=== PATIENT | male | born 1990 | race Caucasian/White ===

== ENCOUNTER 2016-10-12 06:11 | Day surgery (SDC) | payer OTHER ==
[~2016-10-12] VITALS: Ht 185.4 cm; Wt 97.2 kg
[2016-10-12] VITALS (10 sets, daily range): BP systolic 112–125; BP diastolic 58–84; PULSE 50–78; TEMP 97.8
[~2016-10-12 06:11] MED LIST: AMOXICILLIN875 MG PO
[2016-10-12] MEDS ORDERED: NAPROSYN 2250 MG/TAB PO (06:27)
[2016-10-12] MEDS ORDERED: ZANTAC 150150 MG PO (06:28)
[2016-10-12] MEDS ORDERED: NEXIUM 40MG40 MG PO (06:28)
[2016-10-12] MEDS ORDERED: ZOFRAN ODT4 MG PO (06:29)
== END 2016-10-12 10:58 | disposition home or self-care (01) ==
LOC: SDCO 06:11
DX: K80.70 Calculus of gallbladder and bile duct without cholecystitis without obstruction (principal)
CPT/HCPCS: C1769; J2704; J7030; Q9967